=== PATIENT | male | born 1960 | race Caucasian/White ===

== ENCOUNTER → 2016-09-02 | Outpatient (CLI) | payer OTHER ==
[~2016-09-02] MED LIST: KEFLEX500 MG PO; LISINOPRIL10 MG PO
== END | disposition home or self-care (01) ==
LOC: RAD 15:10
DX: M19.072 Primary osteoarthritis, left ankle and foot (principal); Z87.81 Personal history of (healed) traumatic fracture
CPT/HCPCS: 73650